=== PATIENT | female | born 1930 | race Caucasian/White ===

== ENCOUNTER 2016-09-06 11:29 | Observation (INO) | payer MEDICARE, OTHER ==
[~2016-09-06] VITALS: Ht 147.3 cm; Wt 51.0 kg
[~2016-09-06 11:29] MED LIST: METH4TAB PO; NF-EXCEDMI; RIZA10TA23 PO; SULF1TAB38 PO; [UNRECOGNIZED DRUG - CODE]
[2016-09-06] MEDS ORDERED: guaiFENesin/DM (ROBITUSSIN DM) 10 ML UDC PO PRN (11:45)
[2016-09-06] MEDS ORDERED: fentaNYL INJECTION 100 MCG/2 ML AMP IVP PRN (11:45)
[2016-09-06] MEDS ORDERED: IBUPROFEN TABLET 200 MG TAB PO PRN (11:45)
[2016-09-06] MEDS ORDERED: HYDROcodone/APAP 5 MG/325 MG (LORTAB) TAB PO PRN (11:45)
[2016-09-06] MEDS ORDERED: ONDANSETRON 4 MG/2 ML (SDV) Z0FRAN IVP PRN (11:45)
[2016-09-06] MEDS ORDERED: ALPRAZolam 0.25 MG (XANAX) TAB PO PRN (11:45)
[2016-09-06] MEDS ORDERED: POLYETHYLENE GLYCOL 17 GM (MIRALAX) PACK PO PRN (11:45)
[2016-09-06] MEDS ORDERED: ACETAMINOPHEN 500 MG TAB (TYLENOL) PO PRN (11:45)
[2016-09-06 12:05] VITALS: BP 141/65
--- OUTSIDE RECORDS SUMMARY | 2016-09-06 12:06 | XMS REPORT | Continuity of Care Document ---
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 Medications Current Home Medications Medication Dose Units Route Directions Days/Qty Instructions Start Date Rizatriptan Benzoate 10 Mg 0 Oral As Directed 1 TAB AT ONSET OF HEADACHE; repeat after 2 hours if significant relief is not attained; maximum: 30 mg in a 24-hour period 02/03/12 Trimethoprim/Sulfamethoxazole 1 Ea 1 Ea Oral Twice A Day 20 FOR INFECTION 02/03/12 Methylprednisolone 4 Mg/Dose-Pack 0 Oral As Directed 1 02/03/12 Past Home Medications Medication Directions Ordered Status Teriparatide Acetate 750 Mcg/3 Ml Inj, 11/01/08 Discontinued Acetaminophen/Aspirin/Caffeine 1 Tab Tab, 11/01/08 Discontinued Social History Social History Problem Response Recorded Date/Time Recent Foreign Travel No 01/08/2016 1:37pm Hospital Discharge Instructions No hospital discharge instructions. Plan of Care Prescriptions See Medication Section Functional Status No functional status results. Allergies, Adverse Reactions, Alerts Allergen Type Severity Reaction Status Last Updated Chlordiazepoxide Allergy Mild Active 11/01/08 Morphine Adverse Reaction Mild N/V Active 02/03/12 Codeine Allergy Mild Active 11/01/08 Meperidine Allergy Mild Active 11/01/08 Immunizations No immunization records. Vital Signs No known vital signs results. Results No known relevant diagnostic tests, laboratory data and/or discharge summary. Procedures No known history of procedures. Encounters Encounter Location Arrival/Admit Date Discharge/Depart Date Attending Provider Discharged Recurring [facility] 02/16/16 12:06pm 4:10pm HUAN SALAMANCA DO
[2016-09-06] MEDS: NS IV 1000 ML 1,000 ML IV SCH ×2 (12:30→20:40)
--- NOTE | 2016-09-06 12:50 | History & Physical-Hospitalist ---
HPI History of Present Illness: HPI/Chief Complaint CC: Fever with cough HPI: This is an 85-year-old white female that presented to Dr. Figueroa's office with complaints of fever of 102 and unable to eat or drink. She recently had carpal tunnel surgery by Dr. Kolb and had been staying with her sister and she brought her to the doctor's office today because she hadn't been eating or drinking for the past one day. She denies any severe cough but just started last night a dry type of cough. It was suspected that she has influenza so she has been placed in respiratory isolation and workup was ordered. I did start Tamiflu empirically until results are back from influenza screen. She denied any urinary complaints she had a normal bowel movement this morning and denies any other source of the fever. 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) Surgeries HX Surgeries: No Respiratory Hx Respiratory Disorders: No Cardiovascular Hx Cardiovascular Disorders: No Neurological Hx Neurological Disorders: No Genitourinary Hx Genitourinary Disorders: No Gastrointestinal Hx Gastrointestinal Disorders: No Musculoskeletal Hx Musculoskeletal Disorders: Yes Musculoskeletal Disorders: Osteoporosis Endocrine Hx Endocrine Disorders: No HEENT HX ENT Disorders: No Cancer Hx Cancer: No Psychosocial Hx Psychiatric Problems: No Blood Transfusions Hx Blood Disorders: Yes Review of Systems Constitutional: see HPI chills dizziness fever malaise weakness weight loss EENTM: no symptoms reported Respiratory: cough Cardiovascular: no symptoms reported Gastrointestinal: nausea Genitourinary: decreased output Musculoskeletal: back pain Skin: no symptoms reported Psychiatric/Neurological: Anxiety All Other Systems Reviewed Negative Unless Noted: Yes Physical Exam Physical Exam Vital Signs Vital Sign - Last 12Hours 09/06/16 12:30 Temp 100.5 Capillary Refill : General Appearance: No Apparent Distress WD/WN Chronically ill Thin Other ( frail, acutely ill) Eyes: Bilateral Eye Normal Inspection, Bilateral Eye PERRL HEENT: PERRL/EOMI Normal ENT Inspection Pharynx Normal Neck: Full Range of Motion Normal Inspection Non Tender Supple Carotid Bruit Respiratory: Chest Non Tender Lungs Clear Normal Breath Sounds No Accessory Muscle Use No Respiratory Distress Cardiovascular: Regular Rate, Rhythm No Edema No Gallop No JVD No Murmur Normal Peripheral Pulses Gastrointestinal: Normal Bowel Sounds No Organomegaly No Pulsatile Mass Non Tender Soft Back: Normal Inspection No CVA Tenderness No Vertebral Tenderness Extremity: Normal Capillary Refill Normal Inspection Normal Range of Motion Non Tender No Calf Tenderness No Pedal Edema Neurologic/Psychiatric: Alert Oriented x3 No Motor/Sensory Deficits Normal Mood/Affect Skin: Normal Color Warm/Dry Lymphatic: No Adenopathy Assessment/Plan Admission Diagnosis Assessment: Fever with cough suspect influenza acute Cachexia Nausea Dehydration Assessment and Plan Initiate IV fluids Fever control with antipyretics Check labs Influenza swab Tamiflu empirically Zofran Tylenol JENNIFER ZIMMER DO Sep 06, 2016 12:49
[2016-09-06 12:58] LABS: BASOPHILS % (AUTO) 0 % (0-10); EOSINOPHILS % (AUTO) 0 % (0-10); LYMPHOCYTES # (AUTO) 0.7 X 10^3 (1.0-4.0); LYMPHOCYTES % (AUTO) 9 % (12-44); MEAN CORPUSCULAR HEMOGLOBIN 28 PG (25-34); MEAN CORPUSCULAR HGB CONC 33 G/DL (32-36); MEAN CORPUSCULAR VOLUME 87 FL (80-99); MEAN PLATELET VOLUME 10.5 FL (7.4-10.4); MONOCYTES % (AUTO) 12 % (0-12); NEUTROPHILS # (AUTO) 6.4 X 10^3 (1.8-7.8); NEUTROPHILS % (AUTO) 79 % (42-75); PLATELET COUNT 178 10^3/uL (130-400); RED BLOOD COUNT 4.38 10^6/uL (4.35-5.85); RED CELL DISTRIBUTION WIDTH 14.5 % (10.0-14.5); WHITE BLOOD COUNT 8.2 10^3/uL (4.3-11.0)
[2016-09-06 13:09] LABS: ALBUMIN 3.9 G/DL (3.2-4.5); BILIRUBIN,TOTAL 0.4 MG/DL (0.1-1.0); CALCIUM 8.8 MG/DL (8.5-10.1); CREATININE SERUM 0.93 MG/DL (0.60-1.30); TOTAL PROTEIN 6.5 G/DL (6.4-8.2)
[2016-09-06] MEDS: OSELTAMIVIR 75 MG (TAMIFLU) BOX OF 10 PO SCH ×2 (13:28→20:40)
--- NOTE | 2016-09-06 14:34 | Diagnostic Imaging Report ---
EXAMINATION: PA and lateral views of the chest. INDICATION: Fever. COMPARISON: 10/24/2013. FINDINGS: The lungs are hyperinflated. The heart size is normal. There is no effusion or pneumothorax. The mediastinum and ang appear unremarkable. There is thoracolumbar scoliosis, similar to 2013 exam. IMPRESSION: COPD. Dictated by: Dictated on workstation # [id number]
[2016-09-06] MEDS ORDERED: FLU TRIvalent (5 YOA+) 2016-17 (AFLURIA) 0.5 ML IM ONE (14:45)
[2016-09-06] MEDS ORDERED: RT-ALBUTEROL SULF 2.5 MG/3 ML PRE-MIX VIAL INH PRN (15:15)
[2016-09-06 16:55] VITALS: BP 134/90
[2016-09-06] MEDS ORDERED: SELE200T11 PO (17:01)
[2016-09-06] MEDS ORDERED: MAGN500C15 PO (17:01)
[2016-09-06] MEDS ORDERED: LICORICE PO (17:01)
[2016-09-06] MEDS ORDERED: CHOL20003 PO (17:01)
[2016-09-06] MEDS ORDERED: TURM500C7 PO (17:01)
[2016-09-06] MEDS ORDERED: CYAN25003 SL (17:01)
[2016-09-06] MEDS ORDERED: OREG1500 PO (17:01)
[2016-09-06] MEDS ORDERED: COLON HELPER PO (17:01)
[2016-09-06] MEDS ORDERED: CALC-140 PO (17:01)
[2016-09-06 20:28] VITALS: BP 129/70
[2016-09-06] MEDS ORDERED: OSELTAMIVIR 75 MG (TAMIFLU) BOX OF 10 PO SCH (21:00)
[2016-09-07] VITALS: BP 109/62
[2016-09-07 04:00] VITALS: BP 139/75
[2016-09-07] MEDS: NS IV 1000 ML 1,000 ML IV SCH (05:01)
[2016-09-07 05:48] LABS: BASOPHILS % (AUTO) 0 % (0-10); EOSINOPHILS % (AUTO) 0 % (0-10); LYMPHOCYTES # (AUTO) 1.1 X 10^3 (1.0-4.0); LYMPHOCYTES % (AUTO) 21 % (12-44); MEAN CORPUSCULAR HEMOGLOBIN 28 PG (25-34); MEAN CORPUSCULAR HGB CONC 32 G/DL (32-36); MEAN CORPUSCULAR VOLUME 87 FL (80-99); MEAN PLATELET VOLUME 10.5 FL (7.4-10.4); MONOCYTES # (AUTO) 0.7 X 10^3 (0.0-1.0); MONOCYTES % (AUTO) 15 % (0-12); NEUTROPHILS # (AUTO) 3.1 X 10^3 (1.8-7.8); NEUTROPHILS % (AUTO) 64 % (42-75); PLATELET COUNT 167 10^3/uL (130-400); RED BLOOD COUNT 3.89 10^6/uL (4.35-5.85); RED CELL DISTRIBUTION WIDTH 14.5 % (10.0-14.5); WHITE BLOOD COUNT 4.9 10^3/uL (4.3-11.0)
[2016-09-07 06:07] LABS: ALANINE AMINOTRANSFERASE 8 U/L (0-55); ANION GAP 8 MMOL/L (5-14); ASPARTATE AMINO TRANSFERASE 13 U/L (5-34); BILIRUBIN,TOTAL 0.3 MG/DL (0.1-1.0); BLOOD UREA NITROGEN 15 MG/DL (7-18); BUN/CREATININE RATIO 19; CALCIUM 7.8 MG/DL (8.5-10.1); CARBON DIOXIDE 20 MMOL/L (21-32); CHLORIDE 113 MMOL/L (98-107); CREATININE SERUM 0.79 MG/DL (0.60-1.30); GFR ESTIMATED > 60; GLUCOSE 103 MG/DL (70-105); SODIUM 141 MMOL/L (135-145); TOTAL PROTEIN 5.3 G/DL (6.4-8.2)
[2016-09-07] MEDS ORDERED: CATHETER FLUSH 10 ML SYR IV PRN (07:15)
[2016-09-07 08:00] VITALS: BP 128/68
[2016-09-07] MEDS: OSELTAMIVIR 75 MG (TAMIFLU) BOX OF 10 PO SCH (08:11)
[2016-09-07] MEDS ORDERED: OSLT75C PO (08:48)
[2016-09-07] MEDS ORDERED: RELABEL FOR HOME USE MC SCH (09:00)
--- NOTE | 2016-09-07 09:06 | Discharge Instructions ---
Discharge Instructions Discharge Medications New, Converted or Re-Newed RX: Other (no new meds) New Medications: Oseltamivir Phosphate (Tamiflu) 75 Mg Cap 0 EACH PO BID Days 4 CAP Continued Medications: Calcium Carbonate/Vitamin D3 (Calcium + Vitamin D Tablet) 1 Each Tablet 1 TAB PO DAILY TAB Cholecalciferol (Vitamin D3) (Vitamin D3) 2,000 Unit Capsule 2000 UNIT PO DAILY CAP Cyanocobalamin (Vitamin B-12) (Vitamin B-12) 2,500 Mcg Tab.subl 2500 MCG SL DAILY TAB Magnesium Oxide (Magnesium) 500 Mg Capsule 500 MG PO DAILY CAP Oregano Oil (Oil of Oregano) 1,500 Mg Capsule 1500 MG PO DAILY CAP Selenomethionine (Selenium) 200 Mcg Tablet 200 MCG PO DAILY TAB Turmeric Root Extract (Turmeric) 500 Mg Capsule 500 MG PO DAILY CAP ([Colon [place]]) 1 CAP PO DAILY ([Licorice 380MG]) 1 CAP PO DAILY Patient Instructions Goal/Follow Up Appt: Dr Figueroa in 1 week Activity & Diet Discharge Diet: No Restrictions Activity as Tolerated: Yes CLAUDETTE GORDON DO Sep 07, 2016 09:06
[2016-09-07] MEDS ORDERED: OSELTAMIVIR 75 MG (TAMIFLU) BOX OF 10 PO SCH (09:45)
[2016-09-07 10:20] VITALS: BP 128/68
--- NOTE | 2016-09-07 10:30 | Discharge Summary-Hospitalist ---
Diagnosis/Chief Complaint Date of Admission Sep 06, 2016 at 11:50 Date of Discharge Discharge Date: Sep 07, 2016 Admission Diagnosis Assessment: Fever with cough suspect influenza acute Cachexia Nausea Dehydration Discharge Diagnosis Assessment: Fever with cough due to Influenza A acute Cachexia Nausea Dehydration Initiate IV fluids Fever control with antipyretics Check labs Influenza swab Tamiflu empirically Zofran Tylenol Reason Hospital Visit/Course CC: Fever with cough HPI: This is an 85-year-old white female that presented to Dr. Figueroa's office with complaints of fever of 102 and unable to eat or drink. She recently had carpal tunnel surgery by Dr. Kolb and had been staying with her sister and she brought her to the doctor's office today because she hadn't been eating or drinking for the past one day. She denies any severe cough but just started last night a dry type of cough. It was suspected that she has influenza so she has been placed in respiratory isolation and workup was ordered. I did start Tamiflu empirically until results are back from influenza screen. She denied any urinary complaints she had a normal bowel movement this morning and denies any other source of the fever. Notes from 09/07/16: Patient Interview: Pt states that she feels stable enough for DC. Dr. Gordon discusses CXR results with pt. Physical exam stable. Pt has been eating without complications. Pt denies need for cough syrup. No fever today, pleasant, oriented 3, frail, thin, sister at bedside Regular rate and rhythm, clear to auscultation bilaterally No edema Plan: DC with Tamiflu BID Follow-up with Dr. Figueroa next week Scribed by Tyrone Reza under the direct supervision of Dr. Gordon. Discharge Summary Discharge Physical Examination Allergies: Coded Allergies: chlordiazepoxide (Unverified Allergy, Mild, 11/01/08) codeine (Unverified Allergy, Mild, 11/01/08) meperidine (Unverified Allergy, Mild, 11/01/08) morphine (Verified Adverse Reaction, Mild, N/V, 02/03/12) Vitals & I&Os Vital Signs Date Time Temp Pulse Resp B/P Pulse Ox O2 Delivery O2 Flow Rate FiO2 09/07/16 08:00 98.5 66 20 128/68 96 Room Air Hospital Course Labs (last 24 hrs) Laboratory Tests 2/7/17 12:32: Alanine Aminotransferase (ALT/SGPT) 12, Albumin 3.9, Alkaline Phosphatase 30L, Anion Gap 9, Aspartate Amino Transf (AST/SGOT) 16, BUN/Creatinine Ratio 14, Basophils # (Auto) 0.0, Basophils (%) (Auto) 0, Blood Urea Nitrogen 13, Calcium Level 8.8, Carbon Dioxide Level 22, Chloride Level 105, Creatinine 0.93, Eosinophils # (Auto) 0.0, Eosinophils (%) (Auto) 0, Estimat Glomerular Filtration Rate 57, Glucose Level 110H, Hematocrit 38, Hemoglobin 12.4, Lactic Acid Level 1.8, Lymphocytes # (Auto) 0.7L, Lymphocytes (%) (Auto) 9L, Mean Corpuscular Hemoglobin 28, Mean Corpuscular Hemoglobin Concent 33, Mean Corpuscular Volume 87, Mean Platelet Volume 10.5H, Monocytes # (Auto) 1.0, Monocytes (%) (Auto) 12, Neutrophils # (Auto) 6.4, Neutrophils (%) (Auto) 79H, Platelet Count 178, Potassium Level 4.0, Red Blood Count 4.38, Red Cell Distribution Width 14.5, Sodium Level 136, Total Bilirubin 0.4, Total Protein 6.5, White Blood Count 8.2 09/07/16 05:25: Alanine Aminotransferase (ALT/SGPT) 8, Albumin 3.0L, Alkaline Phosphatase 29L, Anion Gap 8, Aspartate Amino Transf (AST/SGOT) 13, BUN/Creatinine Ratio 19, Basophils # (Auto) 0.0, Basophils (%) (Auto) 0, Blood Urea Nitrogen 15, Calcium Level 7.8L, Carbon Dioxide Level 20L, Chloride Level 113H, Creatinine 0.79, Eosinophils # (Auto) 0.0, Eosinophils (%) (Auto) 0, Estimat Glomerular Filtration Rate > 60, Glucose Level 103, Hematocrit 34L, Hemoglobin 10.9L, Lymphocytes # (Auto) 1.1, Lymphocytes (%) (Auto) 21, Mean Corpuscular Hemoglobin 28, Mean Corpuscular Hemoglobin Concent 32, Mean Corpuscular Volume 87, Mean Platelet Volume 10.5H, Monocytes # (Auto) 0.7, Monocytes (%) (Auto) 15H , Neutrophils # (Auto) 3.1, Neutrophils (%) (Auto) 64, Platelet Count 167, Potassium Level 4.0, Red Blood Count 3.89L, Red Cell Distribution Width 14.5, Sodium Level 141, Total Bilirubin 0.3, Total Protein 5.3L, White Blood Count 4.9 Microbiology 09/06/16 Influenza Types A,B Antigen (RICH) - Final, Complete Pending Labs Laboratory Tests 09/07/16 05:25: Alanine Aminotransferase (ALT/SGPT) 8, Albumin 3.0, Alkaline Phosphatase 29, Anion Gap 8, Aspartate Amino Transf (AST/SGOT) 13, BUN/Creatinine Ratio 19, Basophils # (Auto) 0.0, Basophils (%) (Auto) 0, Blood Urea Nitrogen 15, Calcium Level 7.8, Carbon Dioxide Level 20, Chloride Level 113, Creatinine 0.79, Eosinophils # (Auto) 0.0, Eosinophils (%) (Auto) 0, Estimat Glomerular Filtration Rate > 60, Glucose Level 103, Hematocrit 34, Hemoglobin 10.9, Lymphocytes # (Auto) 1.1, Lymphocytes (%) (Auto) 21, Mean Corpuscular Hemoglobin 28, Mean Corpuscular Hemoglobin Concent 32, Mean Corpuscular Volume 87, Mean Platelet Volume 10.5, Monocytes # (Auto) 0.7, Monocytes (%) (Auto) 15, Neutrophils # (Auto) 3.1, Neutrophils (%) (Auto) 64, Platelet Count 167, Potassium Level 4.0, Red Blood Count 3.89, Red Cell Distribution Width 14.5, Sodium Level 141, Total Bilirubin 0.3, Total Protein 5.3, White Blood Count 4.9 Discharge Home Medications: Active Scripts Active Tamiflu (Oseltamivir Phosphate) 75 Mg Cap 0 Each PO BID 4 Days Reported Turmeric (Turmeric Root Extract) 500 Mg Capsule 500 Mg PO DAILY Selenium (Selenomethionine) 200 Mcg Tablet 200 Mcg PO DAILY [Colon [place]] 1 Cap PO DAILY Oil of Oregano (Oregano Oil) 1,500 Mg Capsule 1,500 Mg PO DAILY Vitamin B-12 (Cyanocobalamin (Vitamin B-12)) 2,500 Mcg Tab.subl 2,500 Mcg SL DAILY [Licorice 380MG] 1 Cap PO DAILY Vitamin D3 (Cholecalciferol (Vitamin D3)) 2,000 Unit Capsule 2,000 Unit PO DAILY Magnesium (Magnesium Oxide) 500 Mg Capsule 500 Mg PO DAILY Calcium + Vitamin D Tablet (Calcium Carbonate/Vitamin D3) 1 Each Tablet 1 Tab PO DAILY Instructions to patient/family Please see electonic discharge instructions given to patient. Clinical Quality Measures DVT/VTE Risk/Contraindication: Risk Factor Score Per Nursin RFS Level Per Nursing on Admit: 4+=Very High CLAUDETTE GORDON DO Sep 07, 2016 10:30
== END 2016-09-07 09:04 | disposition home or self-care (01) ==
LOC: 4TH 11:50 → UNDOADMOB 11:50 → 4TH 11:55 → UNDODISOB 09-07 10:20
PROVIDERS: ADMIT Internal Medicine; ATTEND Internal Medicine
DX: J11.1 Influenza due to unidentified influenza virus with other respiratory manifestations (principal); E86.0 Dehydration; R64 Cachexia
CPT/HCPCS: 36415; 71020; 80053; 83605; 85025; 87040; 87804; 94760; 99211; G0378

== ENCOUNTER → 2016-11-25 | Outpatient (CLI) | payer MEDICARE, OTHER ==
[~2016-11-25] MED LIST changes: +CALC-140 PO; +CHOL20003 PO; +COLON HELPER PO; +CYAN25003 SL; +LICORICE PO; +MAGN500C15 PO; +OREG1500 PO; +OSLT75C PO; +SELE200T11 PO; +TURM500C7 PO
--- NOTE | 2016-11-25 14:47 | Diagnostic Imaging Report ---
PROCEDURE: CT head without contrast. TECHNIQUE: Multiple contiguous axial images were obtained through the brain without the use of intravenous contrast. INDICATION: Headaches with pressure and pain behind left eye. COMPARISON: 10/28/2015. FINDINGS: There is mild cortical atrophy. Ventricles are not dilated. There is no intracranial hemorrhage or mass effect. No extra-axial fluid collection. Basal cisterns are clear. Pituitary is not enlarged. Mastoid air cells and paranasal sinuses are well-aerated where visualized. No evidence of inflammatory changes within the sinuses. IMPRESSION: 1. No acute abnormalities have occurred when compared with previous MRI. Mild generalized cortical atrophy noted. Dictated by: Dictated on workstation # [id number]
[2016-11-25 14:49] LABS: BASOPHILS % (AUTO) 1 % (0-10); EOSINOPHILS % (AUTO) 0 % (0-10); LYMPHOCYTES # (AUTO) 1.6 X 10^3 (1.0-4.0); LYMPHOCYTES % (AUTO) 22 % (12-44); MEAN CORPUSCULAR HEMOGLOBIN 28 PG (25-34); MEAN CORPUSCULAR HGB CONC 32 G/DL (32-36); MEAN CORPUSCULAR VOLUME 87 FL (80-99); MEAN PLATELET VOLUME 10.2 FL (7.4-10.4); MONOCYTES # (AUTO) 0.8 X 10^3 (0.0-1.0); MONOCYTES % (AUTO) 12 % (0-12); NEUTROPHILS # (AUTO) 4.7 X 10^3 (1.8-7.8); NEUTROPHILS % (AUTO) 65 % (42-75); PLATELET COUNT 263 10^3/uL (130-400); RED BLOOD COUNT 3.94 10^6/uL (4.35-5.85); RED CELL DISTRIBUTION WIDTH 16.9 % (10.0-14.5); WHITE BLOOD COUNT 7.2 10^3/uL (4.3-11.0)
[2016-11-25 15:08] LABS: ALBUMIN 3.9 G/DL (3.2-4.5); BILIRUBIN,TOTAL 0.5 MG/DL (0.1-1.0); CALCIUM 9.5 MG/DL (8.5-10.1); CREATININE SERUM 0.91 MG/DL (0.60-1.30); ERYTHROCYTE SEDIMENTATION RATE 23 MM/HR (0-30); POTASSIUM 3.7 MMOL/L (3.6-5.0); TOTAL PROTEIN 6.5 G/DL (6.4-8.2); hs C REACTIVE PROTEIN 0.23 MG/DL (0.00-0.50)
== END ==
LOC: RAD 14:10
PROVIDERS: ATTEND Internal Medicine
DX: R51 Headache (principal)
CPT/HCPCS: 36415; 70450; 80053; 85025; 85652; 86141

== ENCOUNTER → 2017-02-13 | Outpatient (CLI) | payer MEDICARE ==
--- NOTE | 2017-02-13 18:02 | Diagnostic Imaging Report ---
Three views of the cervical spine. INDICATION: Headache. Neck pain. FINDINGS: The alignment of the posterior spinal line is satisfactory. There is slight lateral flexion convex to the left seen. The vertebral body heights are preserved. There is significant disc height loss at the C4-C5, C5-C6 and C6-C7 levels with anterior osteophytes seen. The alignment of the lateral masses of C1 and C2 is not well demonstrated on the open-mouth odontoid views which are limited. There is suggestion of small posterior osteophytes in the mid cervical spine. No widening of the predental space. The prevertebral soft tissues appear unremarkable. IMPRESSION: Prominent disc degenerative changes in the mid cervical spine. Dictated by: Dictated on workstation # [id number]
== END ==
LOC: RAD 13:21
PROVIDERS: ATTEND Internal Medicine
DX: M50.321 Other cervical disc degeneration at C4-C5 level (principal); R51 Headache
CPT/HCPCS: 72040